=== PATIENT | male | born 1980 | race African-American/Black ===

== ENCOUNTER 2018-01-12 02:11 | Emergency (ER) | payer OTHER ==
[2018-01-12] MEDS: LIDOCAINE 2%/EPI 1:100,000 20 ML VIAL. IJ (02:41)
[2018-01-12] MEDS: DIPHTH,PERTUSS(ACELL),TET TOX 0.5 ML DISP.SYRIN. VAX IM (02:44)
[2018-01-12] MEDS: SMZ/TMP 800/160MG TABLET. PO (04:41)
[2018-01-12] MEDS ORDERED: NEOMY/BACITR/POLYMYXIN OINT PACKET. TP (06:45)
== END 2018-01-12 07:12 | disposition home or self-care (01) ==
LOC: ER 02:11
DX: S51.811A Laceration without foreign body of right forearm, initial encounter (principal); X58.XXXA Exposure to other specified factors, initial encounter; Y93.89 Activity, other specified; Y92.89 Other specified places as the place of occurrence of the external cause; Y99.8 Other external cause status
CPT/HCPCS: 73090; 90471; 90715; 96372; 99284; J3490